=== PATIENT | male | born 1975 | race American Indian/Alaskan Native ===

== ENCOUNTER 2016-08-27 23:16 | Emergency (ER) | payer SELFPAY ==
[2016-08-28 00:28] LABS: Basophils % (Auto) 0.1 % (0.0-1.8); Eosinophils % (Auto) 5.6 % (0.0-4.3); Hematocrit 41.4 % (35.5-45.6); Hemoglobin 13.8 gm/dl (11.8-15.2); Mean Corpuscular HGB Conc 33 % (32-34); Mean Corpuscular Hemoglobin 28 pg (28-32); Mean Corpuscular Volume 85 fl (84-94); Platelet Count 237 K/mm3 (140-440); Red Blood Count 4.88 M/mm3 (3.65-5.03); Red Cell Distribution Width 13.8 % (13.2-15.2); White Blood Count 8.8 K/mm3 (4.5-11.0)
[2016-08-28 00:51] LABS: Anion Gap 18 mmol/L; BUN/Creatinine Ratio 16.66; Blood Urea Nitrogen 15 mg/dL (9-20); Calcium 9.5 mg/dL (8.4-10.2); Carbon Dioxide 24 mmol/L (22-30); Chloride 98.4 mmol/L (98-107); Glucose 104 mg/dL (75-100); Potassium 3.8 mmol/L (3.6-5.0); Sodium 137 mmol/L (137-145)
[2016-08-28 02:39] LABS: Bilirubin,Urine NEG (Negative); Blood,Urine MOD (Negative); Ketones,Urine NEG (Negative); Leukocyte Esterase,Urine NEG (Negative); Nitrite,Urine NEG (Negative); Protein,Urine <15 mg/dL mg/dL (Negative); Urobilinogen,Urine < 2.0 mg/dL (<2.0); WBC,Urine < 1.0 /HPF (0.0-6.0)
--- NOTE | 2016-08-28 08:50 | Emergency Department Report ---
ED Chest Pain HPI - General Chief Complaint: Chest Pain Stated Complaint: CHEST PAIN Time Seen by Provider: 08/28/16 08:32 Source: patient Mode of arrival: Ambulatory Limitations: No Limitations - History of Present Illness Initial Comments: 41 year male withPast medical history presents to Hospital complaining of sudden onset chest pain while sleeping at 3 AM. Pain woke him up from sleep. Described as a sharp pressure is 7/10 in intensity. Patient had multiple episodes of belching healing and reports some mild shortness of breath. No nausea, vomiting, or diaphoresis. Patient also denies calf tenderness or edema. He does not smoke cigarettes and denies a family history of CAD/PA. Patient has been in the ER for 9+ hours and states that pain was initially constant but he has been pain-free for several hours. Severity scale (0 -10): 0 - Related Data Previous Rx's Medication Instructions Recorded Last Taken Type Aspirin EC [Aspirin Enteric Coated 325 mg PO QDAY #30 tablet. 08/28/16 Unknown Rx TAB] Famotidine [Pepcid] 40 mg PO QHS #30 tablet 08/28/16 Unknown Rx Mag Hydrox/Al Hydrox/Simeth 20 ml PO QID PRN #1 bottle 08/28/16 Unknown Rx [Maalox Advanced Suspension] amLODIPine [Norvasc] 5 mg PO DAILY #30 tab 08/28/16 Unknown Rx Allergies Allergy/AdvReac Type Severity Reaction Status Date / Time No Known Allergies Allergy Unverified 08/27/16 23:55 LLOYD score - Lloyd Score Age > 65: (0) No Aspirin use within the Past 7 Days: (0) No 3 or more CAD Risk Factors: (0) No 2 or more Angina events in past 24 hrs: (0) No Known CAD with more than 50% Stenosis: (0) No Elevated Cardiac Markers: (0) No ST Deviation Greater than 0.5mm: (0) No LLOYD Score: 0 ED Review of Systems ROS: Stated complaint: CHEST PAIN Other details as noted in HPI Comment: All other systems reviewed and negative Other: Constitutional: No fevers chills Eyes: No eye pain visual changes ENT: No ear pain or throat pain Neck: Denies pain Respiratory: Denies cough wheezing Cardiovascular: Denies palpitations, syncope GI: Denies abdominal pain, nausea, vomiting, diarrhea : Denies dysuria, urinary frequency, or urgency Musculoskeletal: Denies back pain, joint swelling Skin: Denies rash, lesions, erythema Neurologic: Denies headache, numbness, weakness Psychiatric: Denies suicidal ideation, hallucinations ED Past Medical Hx - Past Medical History Previous Medical History?: No - Surgical History Past Surgical History?: No - Social History Smoking Status: Former Smoker Substance Use Type: Alcohol - Medications Home Medications: Home Medications Medication Instructions Recorded Confirmed Last Taken Type Aspirin EC [Aspirin Enteric Coated 325 mg PO QDAY #30 tablet.dr 08/28/16 Unknown Rx TAB] Famotidine [Pepcid] 40 mg PO QHS #30 tablet 08/28/16 Unknown Rx Mag Hydrox/Al Hydrox/Simeth 20 ml PO QID PRN #1 bottle 08/28/16 Unknown Rx [Maalox Advanced Suspension] amLODIPine [Norvasc] 5 mg PO DAILY #30 tab 08/28/16 Unknown Rx ED Physical Exam - General Limitations: No Limitations - Other Other exam information: General: No limitations, patient is alert in no acute distress Head exam: Atraumatic, normocephalic Eyes exam: Normal appearance ENT: Moist mucous membrane, normal oropharynx Neck exam: Normal inspection, full range of motion, no meningismus nontender Respiratory exam: Clear to auscultation bilateral, no wheezes, rales, crackles Cardiovascular: Normal rate and rhythm, normal heart sounds Abdomen: Soft, nondistended, and nontender, with normal bowel sounds, no rebound, or guarding Extremity: Full range of motion normal inspection no deformity, no calf tenderness or edema Back: Normal Inspection, full range of motion, no tenderness Neurologic: Alert, oriented x3, cranial nerves intact, no motor or sensory deficit Psychiatric: normal affect, normal mood Skin: Warm, dry, intact ED Course Vital Signs 08/27/16 08/28/16 08/28/16 23:55 04:03 06:20 Temperature 98.2 F 98.2 F Pulse Rate 85 80 65 Respiratory 20 20 20 Rate Blood Pressure 186/111 151/104 Blood Pressure [Left] O2 Sat by Pulse 98 98 Oximetry 08/28/16 08/28/16 08/28/16 06:30 06:45 06:53 Temperature Pulse Rate 58 L 63 63 Respiratory 19 23 18 Rate Blood Pressure 161/91 148/89 Blood Pressure 148/89 [Left] O2 Sat by Pulse 99 98 100 Oximetry 08/28/16 08/28/16 08/28/16 07:12 07:16 07:30 Temperature Pulse Rate 55 L 52 L 52 L Respiratory 24 25 H 21 Rate Blood Pressure 119/89 150/93 Blood Pressure [Left] O2 Sat by Pulse 98 95 96 Oximetry 08/28/16 07:45 Temperature Pulse Rate 58 L Respiratory 23 Rate Blood Pressure 151/89 Blood Pressure [Left] O2 Sat by Pulse 96 Oximetry ED Medical Decision Making - Lab Data Result diagrams: 08/28/16 00:11 08/28/16 00:11 Lab Results 08/28/16 08/28/16 08/28/16 Range/Units 00:11 00:11 02:18 WBC 8.8 (4.5-11.0) K/mm3 RBC 4.88 (3.65-5.03) M/mm3 Hgb 13.8 (11.8-15.2) gm/dl Hct 41.4 (35.5-45.6) % MCV 85 (84-94) fl MCH 28 (28-32) pg MCHC 33 (32-34) % RDW 13.8 (13.2-15.2) % Plt Count 237 (140-440) K/mm3 Lymph % (Auto) 20.2 (13.4-35.0) % [place] % (Auto) 5.6 (0.0-7.3) % Eos % (Auto) 5.6 H (0.0-4.3) % Baso % (Auto) 0.1 (0.0-1.8) % Lymph # 1.8 (1.2-5.4) K/mm3 [place] # 0.5 (0.0-0.8) K/mm3 Eos # 0.5 H (0.0-0.4) K/mm3 Baso # 0.0 (0.0-0.1) K/mm3 Seg Neutrophils % 68.5 (40.0-70.0) % Seg Neutrophils # 6.0 (1.8-7.7) K/mm3 Sodium 137 (137-145) mmol/L Potassium 3.8 (3.6-5.0) mmol/L Chloride 98.4 (98-107) mmol/L Carbon Dioxide 24 (22-30) mmol/L Anion Gap 18 mmol/L BUN 15 (9-20) mg/dL Creatinine 0.9 (0.8-1.5) mg/dL Estimated GFR > 60 ml/min BUN/Creatinine Ratio 16.66 % Glucose 104 H (75-100) mg/dL Calcium 9.5 (8.4-10.2) mg/dL Troponin T < 0.010 (0.00-0.029) ng/mL Urine Color Straw (Yellow) Urine Turbidity Clear (Clear) Urine pH 5.0 (5.0-7.0) Ur Specific [place] 1.014 (1.003-1.030) Urine Protein <15 mg/dl (Negative) mg/dL Urine Glucose (UA) Neg (Negative) mg/dL Urine Ketones Neg (Negative) mg/dL Urine Blood Mod (Negative) Urine Nitrite Neg (Negative) Urine Bilirubin Neg (Negative) Urine Urobilinogen < 2.0 (<2.0) mg/dL Ur Leukocyte Esterase Neg (Negative) Urine WBC (Auto) < 1.0 (0.0-6.0) /HPF Urine RBC (Auto) 1.0 (0.0-6.0) /HPF 08/28/16 Range/Units 03:28 WBC (4.5-11.0) K/mm3 RBC (3.65-5.03) M/mm3 Hgb (11.8-15.2) gm/dl Hct (35.5-45.6) % MCV (84-94) fl MCH (28-32) pg MCHC (32-34) % RDW (13.2-15.2) % Plt Count (140-440) K/mm3 Lymph % (Auto) (13.4-35.0) % [place] % (Auto) (0.0-7.3) % Eos % (Auto) (0.0-4.3) % Baso % (Auto) (0.0-1.8) % Lymph # (1.2-5.4) K/mm3 [place] # (0.0-0.8) K/mm3 Eos # (0.0-0.4) K/mm3 Baso # (0.0-0.1) K/mm3 Seg Neutrophils % (40.0-70.0) % Seg Neutrophils # (1.8-7.7) K/mm3 Sodium (137-145) mmol/L Potassium (3.6-5.0) mmol/L Chloride (98-107) mmol/L Carbon Dioxide (22-30) mmol/L Anion Gap mmol/L BUN (9-20) mg/dL Creatinine (0.8-1.5) mg/dL Estimated GFR ml/min BUN/Creatinine Ratio % Glucose (75-100) mg/dL Calcium (8.4-10.2) mg/dL Troponin T < 0.010 (0.00-0.029) ng/mL Urine Color (Yellow) Urine Turbidity (Clear) Urine pH (5.0-7.0) Ur Specific [place] (1.003-1.030) Urine Protein (Negative) mg/dL Urine Glucose (UA) (Negative) mg/dL Urine Ketones (Negative) mg/dL Urine Blood (Negative) Urine Nitrite (Negative) Urine Bilirubin (Negative) Urine Urobilinogen (<2.0) mg/dL Ur Leukocyte Esterase (Negative) Urine WBC (Auto) (0.0-6.0) /HPF Urine RBC (Auto) (0.0-6.0) /HPF - EKG Data -: EKG Interpreted by Me (sinus rhythm rate [address] elevation or T-wave inversions) - EKG Data When compared to previous EKG there are: previous EKG unavailable - Medical Decision Making Patient is pain-free at this time. Since the likely secondary to gas, cannot fully rule out cardiac disease at this time. Patient has had a normal EKG and 2 sets of negative cardiac enzymes. Pt has not been seen a doctor in at least 3 years. Admission was offered for stress testing. Patient declined stating he prefers to go home. He be started on aspirin, Norvasc, and medication for dyspepsia. Outpatient referrals to be provided. - Differential Diagnosis GERD, dyspepsia, PA, unstable angina, PE Critical Care Time: No Critical care attestation.: If time is entered above; I have spent that time in minutes in the direct care of this critically ill patient, excluding procedure time. ED Disposition Clinical Impression: Chest pain, Dyspepsia, HTN (hypertension) Disposition: DISCHARGED TO HOME OR SELFCARE Is pt being admited?: No Does the pt Need Aspirin: No Condition: Stable Instructions: Chest Pain (ED), Gastroesophageal Reflux Disease (ED), Hypertension (ED) Additional Instructions: You have declined admission at this time for further stress testing. If your symptoms worsen please return to the ER immediately for further evaluation. Otherwise, take the medication as prescribed and follow with the clinic/primary care doctor and department head [facility] or [facility] provided. Continue to monitor your blood pressure at home and reports your findings to your follow-up doctor. Prescriptions: amLODIPine [Norvasc] 5 mg PO DAILY #30 tab Aspirin EC [Aspirin Enteric Coated TAB] 325 mg PO QDAY #30 tablet. Famotidine [Pepcid] 40 mg PO QHS #30 tablet Mag Hydrox/Al Hydrox/Simeth [Maalox Advanced Suspension] 20 ml PO QID PRN #1 bottle PRN Reason: Indigestion Referrals: ALFREDO MIRZA MD [Referring] - 2-3 Days (Primary care clinic doctor) [facility] [Provider Group] - 2-3 Days (Primary care clinic) YARI OROZCO MD [Staff Physician] - 2-3 Days (heart doctor) Time of Disposition: 08:57
[2016-08-28] MEDS ORDERED: NORVASC PO ONE (08:59)
[2016-08-28 09:14] VITALS: BP 170/76
== END 2016-08-28 09:14 | disposition home or self-care (01) ==
LOC: EDBD 23:16 → ED 23:16
DX: R07.9 Chest pain, unspecified (principal); R06.09 Other forms of dyspnea; I10 Essential (primary) hypertension; Z87.891 Personal history of nicotine dependence; Z79.82 Long term (current) use of aspirin
CPT/HCPCS: 36415; 80048; 81001; 84484; 85025; 93005; 93010